=== PATIENT | female | born 1970 ===

== ENCOUNTER 2018-01-01 10:27 | Emergency (ER) | payer OTHER, SELFPAY ==
[2018-01-01 10:30] VITALS: RESP 20
[2018-01-01 10:47] VITALS: TEMP 98.3
--- NOTE | 2018-01-01 11:19 | C.PDOC ---
History Of Present Illness 47 y/o female brought to ED by daughter for evaluation of depression after the loss of her father and uncle in a short time period of 2 weeks. Daughters state patient missed work, has been crying and not eating. They were concerned and brought her for evaluation. Patient is requesting work note . Patient denies suicidal ideation or homicidal ideation. Time Seen by Provider: 01/01/18 10:49 Chief Complaint (Nursing): Anxiety History Per: Patient History/Exam Limitations: no limitations Onset/Duration Of Symptoms: Days Current Symptoms Are (Timing): Still Present Past Medical History Reviewed: Historical Data, Nursing Documentation, Vital Signs Vital Signs: Last Vital Signs Temp 98.3 F 01/01/18 10:41 Pulse 74 01/01/18 13:13 Resp 20 01/01/18 13:13 BP 108/71 01/01/18 13:13 Pulse Ox 98 01/01/18 13:13 - Medical History PMH: Bronchitis Surgical History: No Surg Hx Family History: States: No Known Family Hx - Social History Hx Tobacco Use: No Hx Alcohol Use: No Hx Substance Use: No - Immunization History Hx Tetanus Toxoid Vaccination: No Hx Influenza Vaccination: No Hx Pneumococcal Vaccination: No Review Of Systems Constitutional: Negative for: Fever, Chills Cardiovascular: Negative for: Chest Pain, Palpitations Gastrointestinal: Negative for: Nausea, Vomiting Psych: Positive for: Anxiety, Depression. Negative for: Suicidal ideation Physical Exam - Physical Exam Appears: Non-toxic, No Acute Distress, Other (Tearful, emotional) Skin: Warm, Dry, No Rash Head: Atraumatic, Normacephalic Eye(s): bilateral: Normal Inspection, EOMI Nose: Normal Oral Mucosa: Moist Neck: Normal ROM, Supple Chest: Symmetrical Cardiovascular: Rhythm Regular, No Murmur Respiratory: Normal Breath Sounds, No Rales, No Rhonchi, No Wheezing Gastrointestinal/Abdominal: Soft, No Tenderness, No Guarding, No Rebound Extremity: Bilateral: Atraumatic, Normal Color And Temperature, Normal ROM Neurological/Psych: Oriented x3, Normal Speech Gait: Steady ED Course And Treatment O2 Sat by Pulse Oximetry: 99 (RA) Pulse Ox Interpretation: Normal Medical Decision Making Medical Decision Making: Patient evaluated at bedside. Offer to consult PES for evaluation and if she seeks any counseling. Patient declines. She does not want to stay in hospital. I provide patient with information for outpatient [facility]. Patient has family support and will discharge home. Disposition Counseled Patient/Family Regarding: Diagnosis, Need For Followup - Disposition Disposition: HOME/ ROUTINE Disposition Time: 11:18 Condition: STABLE Additional Instructions: Please [facility] with [facility] at [address] [place] [address]. Please call [phone] or ext [phone] to arrange appointment. If you need to speak to someone immediately call Crisis Hotline [phone] Instructions: Dealing With , Adult Forms: [employer] (Q[place]ari) - POA Present On Arrival: None - Clinical Impression Clinical Impression: Feeling grief - PA / OUTER DIAM[employer]ER [employer] / Resident Statement MD/DO has reviewed & agrees with the documentation as recorded. - Scribe Statement The provider has reviewed the documentation as recorded by the Scribmadhuri Medeiros All medical record entries made by the Didier were at my direction and personally dictated by me. I have reviewed the chart and agree that the record accurately reflects my personal performance of the history, physical exam, medical decision making, and the department course for this patient. I have also personally directed, reviewed, and agree with the discharge instructions and disposition.
[2018-01-01 13:13] VITALS: BP 108/71; PULSE 74
[2018-01-01 17:01] VITALS: O2SAT 99
== END 2018-01-01 13:13 | disposition home or self-care (01) ==
LOC: C.ER 10:27
DX: F43.20 Adjustment disorder, unspecified (principal)